=== PATIENT | male | born 1960 | race Caucasian/White ===

== ENCOUNTER → 2016-09-04 | Outpatient (CLI) | payer OTHER ==
[~2016-09-04] MED LIST: ASPI325T6 PO; ROXICODONE 55 MG/TAB PO
== END ==
LOC: COL.VAS 13:15
DX: R60.0 Localized edema (principal); Z98.890 Other specified postprocedural states; M79.89 Other specified soft tissue disorders

== ENCOUNTER → 2016-11-30 | Outpatient (REF) | LOC: WSOH 11:08 | DX: Z01.89 Encounter for other specified special examinations (principal) ==

== ENCOUNTER → 2017-09-05 | Outpatient (CLI) | payer OTHER ==
[2017-09-05 16:17] LABS: BASO # 0.1 (0.0-0.2); BASO % 0.6 % (0.0-2.0); EOS # 0.2 (0.0-0.7); EOS % 1.6 % (0-4.0); GRAN # 7.3 (1.4-6.5); HEMATOCRIT 41.2 % (42.0-52.0); HEMOGLOBIN 13.8 g/dl (13.5-18.0); LYMPH # 1.5 (1.2-3.4); LYMPH % 15.3 % (20.0-51.0); MEAN CELL VOLUME 86 fl (80.0-100.0); MEAN CORPUSCULAR HEMOGLOBIN 29 pg (27.0-31.0); MEAN CORPUSCULAR HGB CONC 34 g/dl (33.0-37.0); MONO # 0.9 (0.1-0.6); MONO % 9.1 % (1.7-9.3); PLATELET COUNT 226 K/mm3 (130-400); RED BLOOD COUNT 4.81 M/mm3 (4.20-5.60); REDCELL DISTRIBUTION WIDTH-CV 13.6 % (11.5-14.5)
[2017-09-05 16:51] LABS: ERYTHROCYTE SEDIMENTATION RATE 14 mm/hr (0-30)
== END ==
LOC: COL.LAB 15:59
PROVIDERS: Orthopaedic Surgery Sports Medicine
DX: S82.292D Other fracture of shaft of left tibia, subsequent encounter for closed fracture with routine healing (principal)

== ENCOUNTER 2017-10-21 11:42 | Inpatient (IN) | payer OTHER ==
[~2017-10-21] VITALS: Ht 182.9 cm; Wt 123.0 kg
[2017-10-30] VITALS (15 sets, daily range): BP systolic 120–149; BP diastolic 73–92; PULSE 70–108; TEMP 98.3–98.9
[2017-10-31 04:48] VITALS: BP 121/67; PULSE 86; TEMP 98.6
[2017-10-31 07:29] LABS: BASO % 0.4 % (0.0-2.0); EOS # 0.1 (0.0-0.7); EOS % 1.4 % (0-4.0); GRAN # 5.6 (1.4-6.5); GRAN % 76.3 % (42.2-75.2); HEMATOCRIT 42.8 % (42.0-52.0); HEMOGLOBIN 14.2 g/dl (13.5-18.0); LYMPH # 0.7 (1.2-3.4); LYMPH % 9.5 % (20.0-51.0); MEAN CELL VOLUME 86 fl (80.0-100.0); MEAN CORPUSCULAR HEMOGLOBIN 28 pg (27.0-31.0); MEAN CORPUSCULAR HGB CONC 33 g/dl (33.0-37.0); MEAN PLATELET VOLUME 8.9 fl (7.4-10.4); MONO # 0.9 (0.1-0.6); MONO % 11.9 % (1.7-9.3); PLATELET COUNT 137 K/mm3 (130-400); REDCELL DISTRIBUTION WIDTH-CV 13.8 % (11.5-14.5)
[2017-10-31 07:43] LABS: CALCIUM 7.9 mg/dL (8.4-10.2); CREATININE, serum 1.06 mg/dL (0.66-1.25)
[2017-10-31 07:54] LABS: C-REACTIVE PROTEIN 16.3 mg/dL (0.0-0.9)
[2017-10-31 09:02] VITALS: BP 123/68; PULSE 98; TEMP 100.2
[2017-10-31 11:54] VITALS: BP 144/80; PULSE 95; TEMP 100.6
[2017-10-31 15:33] VITALS: BP 161/81; PULSE 107; TEMP 99.6
[2017-10-31 19:26] VITALS: BP 142/66; PULSE 107; TEMP 98.1
[2017-10-31 23:48] VITALS: BP 136/88; PULSE 91; TEMP 98.4
[2017-11-01 03:44] VITALS: BP 106/60; PULSE 93; TEMP 98.1
[2017-11-01 08:20] VITALS: BP 119/70; PULSE 94; TEMP 99
[2017-11-01 12:14] VITALS: BP 122/72; PULSE 80; TEMP 98.2
[2017-11-01 16:03] VITALS: BP 96/73; PULSE 82; TEMP 98.6
[2017-11-01 19:45] VITALS: BP 125/79; PULSE 89; TEMP 98.5
[2017-11-02 04:33] VITALS: BP 151/94; PULSE 83; TEMP 98.6
[2017-11-02 07:58] VITALS: BP 147/86; PULSE 90; TEMP 97.7
[2017-11-02] MEDS ORDERED: ROCEPHIN 2GM VIAL21 IJ (08:48)
[2017-11-02 12:07] VITALS: BP 136/83; PULSE 79; TEMP 98.5
== END 2017-11-02 13:35 | disposition home or self-care (01) | DRG 496 ==
LOC: INPTSU 10-30 05:39 → SURG 10-30 05:39
PROVIDERS: Internal Medicine Infectious Disease; Orthopaedic Surgery Sports Medicine
PROC: 0JDP0ZZ Extraction of Left Lower Leg Subcutaneous Tissue and Fascia, Open Approach (ICD-10-PCS; 2017-10-30)
PROC: 0QPH04Z Removal of Internal Fixation Device from Left Tibia, Open Approach (ICD-10-PCS; principal; 2017-10-30 07:30)
DX: T84.623A Infection and inflammatory reaction due to internal fixation device of left tibia, initial encounter (principal); L97.221 Non-pressure chronic ulcer of left calf limited to breakdown of skin; I10 Essential (primary) hypertension; F17.210 Nicotine dependence, cigarettes, uncomplicated
CPT/HCPCS: J0690; J0692; J0696; J1170; J1885; J2405; J2704; J3010; J3370; J7040; J7120

== ENCOUNTER 2017-11-03 11:19 | Outpatient (RCR) | payer OTHER ==
[~2017-11-03] VITALS: Ht 182.9 cm; Wt 129.0 kg
[~2017-11-03 11:19] MED LIST changes: +ROCEPHIN 2GM VIAL21 IJ
[2017-11-04] MEDS ORDERED: COLACE 100100 MG/CAP PO (12:04)
[2017-11-04] MEDS ORDERED: MOBIC15 MG PO (12:05)
[2017-11-04 12:16] VITALS: BP 144/89; PULSE 75; TEMP 97.7
[2017-11-05 11:00] VITALS: BP 130/91; PULSE 81; TEMP 98.8
[2017-11-06 11:07] VITALS: BP 128/81; PULSE 78; TEMP 98.9
[2017-11-07 11:01] VITALS: BP 129/90; PULSE 87; TEMP 97.8
[2017-11-08 11:18] VITALS: BP 129/83; PULSE 84; TEMP 98.1
[2017-11-08 12:11] LABS: HEMATOCRIT 37.5 % (42.0-52.0); HEMOGLOBIN 12.2 g/dl (13.5-18.0); MEAN CELL VOLUME 86 fl (80.0-100.0); MEAN CORPUSCULAR HEMOGLOBIN 28 pg (27.0-31.0); MEAN CORPUSCULAR HGB CONC 33 g/dl (33.0-37.0); MEAN PLATELET VOLUME 8.8 fl (7.4-10.4); PLATELET COUNT 265 K/mm3 (130-400); RED BLOOD COUNT 4.36 M/mm3 (4.20-5.60); REDCELL DISTRIBUTION WIDTH-CV 13.8 % (11.5-14.5)
[2017-11-08 12:16] LABS: ALBUMIN 3.4 gm/dL (3.5-5.0); BILIRUBIN,TOTAL 0.3 mg/dL (0.0-1.0); C-REACTIVE PROTEIN 3.3 mg/dL (0.0-0.9); CALCIUM 8.5 mg/dL (8.4-10.2); CREATININE, serum 0.93 mg/dL (0.66-1.25); POTASSIUM 4.6 mmol/L (3.4-5.0); TOTAL PROTEIN 6.6 gm/dL (6.4-8.2)
[2017-11-08 12:47] LABS: ERYTHROCYTE SEDIMENTATION RATE 12 mm/hr (0-30)
[2017-11-09 08:30] VITALS: BP 141/96; PULSE 77; TEMP 98
[2017-11-10 08:45] VITALS: BP 143/96; PULSE 90; TEMP 97.7
[2017-11-11 08:40] VITALS: BP 141/93; PULSE 79; TEMP 98.1
[2017-11-12 09:30] VITALS: BP 137/87; PULSE 79; TEMP 98.4
[2017-11-13 08:18] VITALS: BP 133/89; PULSE 77; TEMP 97.9
[2017-11-14 08:13] VITALS: BP 142/95; PULSE 95; TEMP 98.4
[2017-11-15 08:12] VITALS: BP 143/90; PULSE 82; TEMP 98
[2017-11-16 07:20] VITALS: BP 148/90; PULSE 90; TEMP 98.2
[2017-11-17 07:36] VITALS: BP 179/59; PULSE 69; TEMP 97.8
[2017-11-18 08:18] LABS: HEMATOCRIT 42.2 % (42.0-52.0); HEMOGLOBIN 13.7 g/dl (13.5-18.0); MEAN CELL VOLUME 86 fl (80.0-100.0); MEAN CORPUSCULAR HEMOGLOBIN 28 pg (27.0-31.0); MEAN CORPUSCULAR HGB CONC 33 g/dl (33.0-37.0); MEAN PLATELET VOLUME 9.1 fl (7.4-10.4); PLATELET COUNT 262 K/mm3 (130-400); RED BLOOD COUNT 4.93 M/mm3 (4.20-5.60); REDCELL DISTRIBUTION WIDTH-CV 14.7 % (11.5-14.5)
[2017-11-18 08:19] VITALS: BP 142/97; PULSE 93; TEMP 98.9
[2017-11-18 08:26] LABS: ALBUMIN 3.7 gm/dL (3.5-5.0); BILIRUBIN,TOTAL 0.4 mg/dL (0.0-1.0); CREATININE, serum 0.92 mg/dL (0.66-1.25); POTASSIUM 4.3 mmol/L (3.4-5.0); TOTAL PROTEIN 6.7 gm/dL (6.4-8.2)
[2017-11-18 08:41] LABS: ERYTHROCYTE SEDIMENTATION RATE 6 mm/hr (0-30)
[2017-11-19 08:00] VITALS: BP 125/89; PULSE 85; TEMP 98.7
[2017-11-20 08:53] VITALS: BP 128/88; PULSE 84; TEMP 98.1
[2017-11-21 08:00] VITALS: BP 143/83; PULSE 81; TEMP 99.5
[2017-11-22 08:26] VITALS: BP 124/86; PULSE 80; TEMP 98.2
[2017-11-23 07:44] VITALS: BP 134/87; PULSE 92; TEMP 97.7
[2017-11-24 07:54] VITALS: BP 128/86; PULSE 83; TEMP 98.2
[2017-11-25 08:16] VITALS: BP 128/87; PULSE 79; TEMP 97.4
[2017-11-25 08:41] LABS: HEMATOCRIT 39.8 % (42.0-52.0); HEMOGLOBIN 12.9 g/dl (13.5-18.0); MEAN CELL VOLUME 87 fl (80.0-100.0); MEAN CORPUSCULAR HEMOGLOBIN 28 pg (27.0-31.0); MEAN CORPUSCULAR HGB CONC 32 g/dl (33.0-37.0); MEAN PLATELET VOLUME 9.3 fl (7.4-10.4); PLATELET COUNT 178 K/mm3 (130-400); RED BLOOD COUNT 4.56 M/mm3 (4.20-5.60); REDCELL DISTRIBUTION WIDTH-CV 14.5 % (11.5-14.5)
[2017-11-25 08:55] LABS: ALBUMIN 3.6 gm/dL (3.5-5.0); BILIRUBIN,TOTAL 0.6 mg/dL (0.0-1.0); C-REACTIVE PROTEIN 1.2 mg/dL (0.0-0.9); CALCIUM 8.5 mg/dL (8.4-10.2); CREATININE, serum 0.91 mg/dL (0.66-1.25); POTASSIUM 4.1 mmol/L (3.4-5.0); TOTAL PROTEIN 6.6 gm/dL (6.4-8.2)
[2017-11-25 09:02] LABS: ERYTHROCYTE SEDIMENTATION RATE 5 mm/hr (0-30)
[2017-11-26 08:06] VITALS: BP 135/90; PULSE 70; TEMP 98.5
[2017-11-27 07:52] VITALS: BP 137/112; PULSE 62; TEMP 97.6
[2017-11-28 08:47] VITALS: BP 147/97; PULSE 79; TEMP 98.1
[2017-11-29 08:02] VITALS: BP 135/92; PULSE 80; TEMP 97.8
[2017-11-30 07:38] VITALS: BP 145/93; PULSE 80; TEMP 97.2
[2017-12-01 07:41] VITALS: BP 133/93; PULSE 88; TEMP 97.2
[2017-12-02 08:00] VITALS: BP 132/86; PULSE 80; TEMP 97.9
[2017-12-02 08:17] LABS: HEMOGLOBIN 13.8 g/dl (13.5-18.0); MEAN CELL VOLUME 85 fl (80.0-100.0); MEAN CORPUSCULAR HEMOGLOBIN 29 pg (27.0-31.0); MEAN CORPUSCULAR HGB CONC 34 g/dl (33.0-37.0); MEAN PLATELET VOLUME 9.5 fl (7.4-10.4); PLATELET COUNT 171 K/mm3 (130-400); RED BLOOD COUNT 4.82 M/mm3 (4.20-5.60); REDCELL DISTRIBUTION WIDTH-CV 14.6 % (11.5-14.5)
[2017-12-02 08:30] LABS: ALBUMIN 3.8 gm/dL (3.5-5.0); BILIRUBIN,TOTAL 0.6 mg/dL (0.0-1.0); C-REACTIVE PROTEIN 1.4 mg/dL (0.0-0.9); CALCIUM 8.8 mg/dL (8.4-10.2); CREATININE, serum 0.93 mg/dL (0.66-1.25); POTASSIUM 4.4 mmol/L (3.4-5.0); TOTAL PROTEIN 6.8 gm/dL (6.4-8.2)
[2017-12-02 08:37] LABS: ERYTHROCYTE SEDIMENTATION RATE 1 mm/hr (0-30)
[2017-12-03 07:48] VITALS: BP 148/100; PULSE 96; TEMP 97.9
[2017-12-03 07:51] VITALS: BP 136/84; PULSE 82
[2017-12-04 07:58] VITALS: BP 125/79; PULSE 79; TEMP 97.3
[2017-12-05 08:02] VITALS: BP 133/93; PULSE 71; TEMP 98.2
[2017-12-06 07:59] VITALS: BP 148/81; PULSE 74; TEMP 97.5
[2017-12-07 07:30] VITALS: BP 142/84; PULSE 86; TEMP 97.6
[2017-12-08 07:37] VITALS: BP 150/92; PULSE 82; TEMP 98
[2017-12-09 08:20] VITALS: BP 141/96; PULSE 80; TEMP 98.4
[2017-12-09 08:25] LABS: HEMATOCRIT 42.3 % (42.0-52.0); HEMOGLOBIN 14.2 g/dl (13.5-18.0); MEAN CELL VOLUME 86 fl (80.0-100.0); MEAN CORPUSCULAR HEMOGLOBIN 29 pg (27.0-31.0); MEAN CORPUSCULAR HGB CONC 34 g/dl (33.0-37.0); MEAN PLATELET VOLUME 8.9 fl (7.4-10.4); PLATELET COUNT 184 K/mm3 (130-400); RED BLOOD COUNT 4.95 M/mm3 (4.20-5.60); REDCELL DISTRIBUTION WIDTH-CV 14.7 % (11.5-14.5)
[2017-12-09 08:34] LABS: ALBUMIN 3.7 gm/dL (3.5-5.0); BILIRUBIN,TOTAL 0.4 mg/dL (0.0-1.0); CALCIUM 8.6 mg/dL (8.4-10.2); CREATININE, serum 0.88 mg/dL (0.66-1.25); POTASSIUM 4.2 mmol/L (3.4-5.0); TOTAL PROTEIN 6.7 gm/dL (6.4-8.2)
[2017-12-09 08:47] LABS: ERYTHROCYTE SEDIMENTATION RATE 2 mm/hr (0-30)
[2017-12-10 08:22] VITALS: BP 139/81; PULSE 76; TEMP 97.6
[2017-12-11 07:57] VITALS: BP 144/94; PULSE 73; TEMP 97.4
[2017-12-12 08:11] VITALS: BP 136/91; PULSE 79; TEMP 97.9
[2017-12-13 08:26] VITALS: BP 145/82; PULSE 79; TEMP 98.7
[2017-12-14 07:55] VITALS: BP 126/84; PULSE 83; TEMP 98.3
== END 2017-12-14 08:37 | disposition home or self-care (01) ==
LOC: EUO 11-05 11:00
PROVIDERS: Internal Medicine Infectious Disease; Orthopaedic Surgery Sports Medicine
DX: T84.7XXA Infection and inflammatory reaction due to other internal orthopedic prosthetic devices, implants and grafts, initial encounter (principal); B99.9 Unspecified infectious disease; Z45.2 Encounter for adjustment and management of vascular access device; Z95.9 Presence of cardiac and vascular implant and graft, unspecified
CPT/HCPCS: C1751; J0696

== ENCOUNTER → 2021-08-31 | Outpatient (CLI) | payer OTHER ==
[~2021-08-31] MED LIST changes: +COLACE 100100 MG/CAP PO; +MOBIC15 MG PO
== END ==
LOC: COL.VAS 10:26
DX: M19.071 Primary osteoarthritis, right ankle and foot (principal)

== ENCOUNTER → 2021-09-19 | Outpatient (CLI) | payer OTHER | LOC: COL.RAD 13:27 | DX: M43.16 Spondylolisthesis, lumbar region (principal); M47.816 Spondylosis without myelopathy or radiculopathy, lumbar region; M51.37 Other intervertebral disc degeneration, lumbosacral region; M51.27 Other intervertebral disc displacement, lumbosacral region ==

== ENCOUNTER 2021-09-29 07:40 | Day surgery (SDC) | payer OTHER ==
[2021-09-29] VITALS (10 sets, daily range): BP systolic 105–123; BP diastolic 62–99; PULSE 68–111; TEMP 97.8
[~2021-09-29] VITALS: Ht 182.9 cm; Wt 128.0 kg
[2021-09-29 08:31] LABS: BASO # 0.1 K/mm3 (0.0-0.2); BASO % 0.8 % (0.0-2.0); EOS # 0.2 K/mm3 (0.0-0.7); EOS % 2.1 % (0.0-4.0); GRAN # 5.3 K/mm3 (1.4-6.5); GRAN % 70.4 % (42.2-75.2); HEMATOCRIT 44.8 % (42.0-52.0); HEMOGLOBIN 15.3 g/dl (13.5-18.0); LYMPH # 1.2 K/mm3 (1.2-3.4); LYMPH % 16.3 % (20.0-51.0); MEAN CELL VOLUME 86 fl (80.0-100.0); MEAN CORPUSCULAR HEMOGLOBIN 29 pg (27-31); MEAN CORPUSCULAR HGB CONC 34 g/dl (33.0-37.0); MEAN PLATELET VOLUME 10.5 fl (7.4-10.4); MONO # 0.8 K/mm3 (0.1-0.6); PLATELET COUNT 168 K/mm3 (130-400); REDCELL DISTRIBUTION WIDTH-CV 13.9 % (11.5-14.5)
[2021-09-29 08:40] LABS: INR 1.3 (0.8-3.0); PROTHROMBIN TIME 14.7 SECONDS (9.7-12.8)
[2021-09-29 08:43] LABS: PARTIAL THROMBOPLASTIN TIME 34.6 SECONDS (26.0-37.0)
[2021-09-29] MEDS ORDERED: PRINZIDE 12.5 M1 TAB PO (08:44)
[2021-09-29] MEDS ORDERED: TOPROL XL 25MG25 MG PO (08:45)
[2021-09-29] MEDS ORDERED: PROTONIX 40MG T40 MG PO (08:45)
[2021-09-29] MEDS ORDERED: XARELTO20 MG PO (08:46)
[2021-09-29] MEDS ORDERED: VITAMIN B125000 MCG PO (08:47)
[2021-09-29] MEDS ORDERED: VITAMIND3 5000 PO (08:48)
[2021-09-29] MEDS ORDERED: ZINC LOZENGES1 LOZ PO (08:50)
[2021-09-29 08:55] LABS: CALCIUM 8.9 mg/dL (8.4-10.2); CREATININE, serum 1.17 mg/dL (0.72-1.25); POTASSIUM 4.3 mmol/L (3.5-4.5)
[2021-09-29 09:15] LABS: THYROID STIMULATING HORMONE 2.532 uIU/mL (0.350-4.940)
--- NOTE | 2021-09-29 11:40 | NUR ---
See merge for all medication, assessment, intervention, and vital sign times.
[2021-09-29] MEDS ORDERED: PACERONE400 MG PO (14:26)
--- NOTE | 2021-09-29 16:15 | NUR ---
Pt has done well during his recovery. Repeat EKG was obtained. Pt has remained in sinus rhythm throughout his post procedure recovery. TR band was deflated with no problem. cms remains intact distal. Rt radial site dressed with bandaid, folded 2x2 and coban. I reviewed dc instructions regarding tiffanie, cv and lhc with pt and . RX and fu instructions were also reviewed. Pt instructed to restart xarelto tomorrow night per Dr. Abdalla, and to get second dose of PO amiodarone in this evening at about 2200. Pt and verbalized understanding of instructions, and denied any questions at time of departure. I did escort pt to exit in a wheelchair.
== END 2021-09-29 16:10 | disposition home or self-care (01) ==
LOC: COL.CAR 07:40
PROVIDERS: Internal Medicine Cardiovascular Disease
DX: I25.10 Atherosclerotic heart disease of native coronary artery without angina pectoris (principal); I48.91 Unspecified atrial fibrillation; I34.0 Nonrheumatic mitral (valve) insufficiency
CPT/HCPCS: C1769; J0282; J1644; J2250; J2704; J3010; J7060; Q9967